=== PATIENT | female | born 1990 | race Caucasian/White ===

== ENCOUNTER 2023-10-29 08:14 | Inpatient (IN) | payer MEDICAID ==
[~2023-10-29] VITALS: Ht 162.6 cm; Wt 75.5 kg
[2023-10-29 08:18] VITALS: TEMP 96.8
[2023-10-29 08:50] LABS: BILIRUBIN,URINE MODERATE (Neg); CLARITY,URINE CLOUDY (Clear); COLOR,URINE AMBER (Yellow); GLUCOSE, URINE 100 mg/dl (Neg); KETONES,URINE TRACE mg/dl (Neg); LEUKOCYTE ESTERASE ,URINE MODERATE (Neg); OCCULT BLOOD,URINE LARGE (Neg); PH,URINE 6.5 (4.8-8.0); PROTEIN,URINE >=300 mg/dl (Neg)
[2023-10-29 08:51] LABS: URINE HCG NEGATIVE (NEG)
[2023-10-29 08:57] LABS: NITRITES, URINE NEGATIVE (Neg); UA COLLECTION TYPE CLN CATCH MIDSTREAM
[2023-10-29 08:58] LABS: MUCUS STRANDS FEW /LPF (Neg); SQUAMOUS EPITHELIAL CELL,UR MANY /LPF (FEW)
[2023-10-29 08:59] LABS: RBC,URINE TNTC /HPF (0-2); WBC,URINE TNTC /HPF (0-4)
[2023-10-29 09:00] LABS: BACTERIA,URINE FEW /HPF (Neg); TRANSITIONAL EPI CELLS,URINE FEW /HPF
[2023-10-29 09:19] LABS: BASOPHILS % (AUTO) 0.6 % (0-1); EOSINOPHILS # (AUTO) 0.2 X10'3 (0-0.9); EOSINOPHILS % (AUTO) 2.6 % (0-6); HEMATOCRIT 36.9 % (35.0-45.0); HEMOGLOBIN 12.4 g/dl (12.0-16.0); LYMPHOCYTES # (AUTO) 2.6 X10'3 (1.1-4.8); LYMPHOCYTES % (AUTO) 33.2 % (21-51); MEAN CORPUSCULAR HEMOGLOBIN 29.8 PG (27.0-31.0); MEAN CORPUSCULAR HGB CONC 33.6 g/dL (33.0-36.5); MEAN CORPUSCULAR VOLUME 88.7 FL (78-98); MEAN PLATELET VOLUME 7.6 FL (7.4-10.4); MONOCYTES # (AUTO) 0.6 X10'3 (0-0.9); NEUTROPHILS # (AUTO) 4.3 X10'3 (1.8-7.7); NEUTROPHILS % (AUTO) 55.6 % (42-75); PLATELET COUNT 277 X10'3 (140-440); RED BLOOD COUNT 4.16 X10'6 (4.20-5.60); RED CELL DISTRIBUTION WIDTH 13.9 % (11.5-14.5); WHITE BLOOD COUNT 7.7 X10'3 (4.5-11.0)
[2023-10-29] MEDS: ketorolac trometh. 30mg/ml inj. IV ONE (09:56)
[2023-10-29] MEDS: acetaminophen 325mg tablet PO ONE (09:56)
[2023-10-29] MEDS: normal saline 1000ML IV soln IVB ONE (09:57)
[2023-10-29] MEDS: piperacillin/tazo 3.375gm/50ml 50 ML IV ONE (10:55)
[2023-10-29 11:16] LABS: ALBUMIN 3.2 G/DL (3.4-5.0); ANION GAP 8 (8-16); BLOOD UREA NITROGEN 10 MG/DL (7-18); BUN/CREATININE RATIO 16.7 (10.0-20.0); CALCIUM 8.4 MG/DL (8.5-10.1); CHLORIDE 108 MMOL/L (99-107); GLUCOSE 110 MG/DL (70-104); POTASSIUM 3.3 MMOL/L (3.5-5.1); SODIUM 142 MMOL/L (135-145); TOTAL CARBON DIOXIDE 26.1 MMOL/L (24-32); eCRCL 116 ML/MIN; eGFR > 90 ML/MIN
[2023-10-29 11:37] LABS: MAGNESIUM 1.7 MG/DL (1.5-2.4)
[2023-10-29 11:37] LABS: URINE AMPHETAMINE SCREEN NEGATIVE (Neg); URINE BARBITUATE SCREEN NEGATIVE (Neg); URINE BENZODIAZEPINES SCREEN NEGATIVE (Neg); URINE CANNABINOID SCREEN POSITIVE (Neg); URINE COCAINE SCREEN NEGATIVE (Neg); URINE METHADONE SCREEN NEGATIVE (Neg); URINE OPIATE SCREEN NEGATIVE (Neg); URINE PHENCYCLIDINE SCREEN NEGATIVE (Neg)
[2023-10-29] MEDS ORDERED: BUPR1FIL3 PO ×3 (13:15)
[2023-10-29] MEDS ORDERED: QUET100T34 PO (13:17)
[2023-10-29] MEDS ORDERED: METH-798 PO (13:17)
[2023-10-29] MEDS ORDERED: HYDR-3927 PO (13:17)
[2023-10-29] MEDS ORDERED: GABAPENTIN PO (13:17)
[2023-10-29] MEDS ORDERED: magnesium 2GM in 50ml NS 50 ML IV PRN (15:05)
[2023-10-29] MEDS ORDERED: potassium Cl 40MEQ/1/2NS 520ml 520 ML IV PRN (15:05)
[2023-10-29] MEDS ORDERED: magnesium 4gm in 100ml NS 100 ML IV PRN (15:05)
[2023-10-29] MEDS ORDERED: potassium Cl 20 mEq SR tablet PO PRN ×2 (15:05)
[2023-10-29] MEDS ORDERED: acetaminophen 325mg tablet PO PRN (15:05)
[2023-10-29] MEDS ORDERED: magnesium Cl slow-release 64mg tablet PO PRN (15:05)
[2023-10-29] MEDS ORDERED: mag hydrox/Alum hydrox/simeth 30ml oral suspension PO PRN (15:05)
[2023-10-29] MEDS ORDERED: ondansetron/PF 4mg/2ml inj IV PRN (15:05)
[2023-10-29] MEDS ORDERED: magnesium hydroxide 30ml (MOM) UD suspension PO PRN (15:05)
[2023-10-29 15:58] VITALS: BP 108/61; PULSE 67; RESP 15; O2SAT 95
[2023-10-29] MEDS ORDERED: piperacillin/tazo 3.375gm/50ml 50 ML IV SCH (16:00)
[2023-10-29] MEDS ORDERED: normal saline 1000ml 1,000 ML IV SCH (16:55)
[2023-10-29] MEDS ORDERED: normal saline 1000ml 1,000 ML IV ONE (16:55)
[2023-10-29] MEDS ORDERED: K and/or MAG REPLACEMENT MC SCH (20:00)
[2023-10-29] MEDS ORDERED: docusate sod 100mg capsule PO SCH (20:00)
== END 2023-10-29 17:58 | disposition left against medical advice (07) | DRG 463 ==
LOC: ER 08:16 → ED HOLD 15:02
PROVIDERS: ADMIT Family Medicine; ATTEND Family Medicine
DX: N12 Tubulo-interstitial nephritis, not specified as acute or chronic (principal); N13.9 Obstructive and reflux uropathy, unspecified; Z53.21 Procedure and treatment not carried out due to patient leaving prior to being seen by health care provider; Z79.899 Other long term (current) drug therapy; Z87.442 Personal history of urinary calculi
CPT/HCPCS: 36415; 74018; 74176; 76770; 80048; 80305; 81001; 81025; 83605; 83735; 84145; 85025; 87040; 99285; G0378; J1885; J2543; J7030

== ENCOUNTER 2023-12-24 01:23 | Emergency (ER) | payer MEDICAID ==
[~2023-12-24] VITALS: Ht 162.6 cm; Wt 75.6 kg
[~2023-12-24 01:23] MED LIST: BUPR1FIL3 PO; GABAPENTIN PO; HYDR-3927 PO; METH-798 PO; QUET100T34 PO
[2023-12-24 01:46] VITALS: BP 115/70; PULSE 82; RESP 16; TEMP 98.6; O2SAT 98
[2023-12-24 02:37] LABS: URINE HCG NEGATIVE (NEG)
== END 2023-12-24 02:53 | disposition home or self-care (01) ==
LOC: ER 01:24
DX: F11.10 Opioid abuse, uncomplicated (principal); Z79.899 Other long term (current) drug therapy
CPT/HCPCS: 81025; 99283

== ENCOUNTER 2024-01-09 13:22 | Emergency (ER) | payer MEDICAID ==
[~2024-01-09] VITALS: Ht 162.6 cm; Wt 2.2 kg
[2024-01-09 13:46] VITALS: BP 120/77; PULSE 99; RESP 18; TEMP 97.8; O2SAT 98
[2024-01-09] MEDS ORDERED: SULF1TAB49 PO (15:46)
[2024-01-09] MEDS ORDERED: NAPR-56 PO (15:46)
[2024-01-09] MEDS ORDERED: CEPH-585 PO (15:46)
== END 2024-01-09 16:10 | disposition home or self-care (01) ==
LOC: ER 13:23
DX: L03.116 Cellulitis of left lower limb (principal); Z79.899 Other long term (current) drug therapy
CPT/HCPCS: 99283

== ENCOUNTER 2024-02-18 11:16 | Emergency (ER) | payer MEDICAID ==
[~2024-02-18] VITALS: Ht 162.6 cm; Wt 70.2 kg
[~2024-02-18 11:16] MED LIST changes: +CEPH-585 PO
[2024-02-18 11:30] VITALS: BP 145/80; PULSE 98; TEMP 98.1; O2SAT 96
[2024-02-18] MEDS: CefTRIAXone 1000mg IM Kit (w/lidocaine diluent) IM ONE (13:13)
[2024-02-18] MEDS: dexamethasone sod phosphate 10mg/ml inj IM STA (13:13)
[2024-02-18 13:27] VITALS: RESP 16
[2024-02-18] MEDS ORDERED: PRED20TA PO (14:07)
[2024-02-18] MEDS ORDERED: AMOX500C2 PO (14:07)
== END 2024-02-18 14:29 | disposition home or self-care (01) ==
LOC: ER 11:16
DX: J02.9 Acute pharyngitis, unspecified (principal); Z79.899 Other long term (current) drug therapy; Z79.2 Long term (current) use of antibiotics
CPT/HCPCS: 96372; 99284; J0696; J1100

== ENCOUNTER 2024-08-16 16:11 | Emergency (ER) | payer MEDICAID ==
[~2024-08-16] VITALS: Ht 162.6 cm; Wt 67.5 kg
[2024-08-16 16:13] VITALS: BP 137/57; PULSE 88; RESP 16; O2SAT 98
[2024-08-16] MEDS ORDERED: AMOX-580 PO (17:03)
[2024-08-16] MEDS ORDERED: OFLO5DRO5 RIGHT EAR (17:03)
[2024-08-16 17:07] VITALS: TEMP 98.5
== END 2024-08-16 17:09 | disposition home or self-care (01) ==
LOC: ER 16:11
DX: H66.91 Otitis media, unspecified, right ear (principal); H60.91 Unspecified otitis externa, right ear; Z79.899 Other long term (current) drug therapy
CPT/HCPCS: 99283